=== PATIENT | male | born 1930 | race Caucasian/White ===

== ENCOUNTER → 2018-06-05 | Outpatient (CLI) | payer MEDICARE, OTHER ==
[~2018-06-05] MED LIST: GADOBUTROL 10 MMOL/10 ML PFS ONE
[2018-06-05 13:29] LABS: CREATININE 0.86 mg/dL (0.7-1.3)
== END | disposition home or self-care (01) ==
LOC: RAD 12:18
PROVIDERS: ATTEND Psychiatry & Neurology Neurology
DX: G31.9 Degenerative disease of nervous system, unspecified (principal); F02.80 Dementia in other diseases classified elsewhere, unspecified severity, without behavioral disturbance, psychotic disturbance, mood disturbance, and anxiety
CPT/HCPCS: 36415; 70553; 82565; A9585